=== PATIENT | female | born 1975 | race Caucasian/White ===

== ENCOUNTER 2018-11-22 03:04 | Emergency (ER) | payer SELFPAY ==
[~2018-11-22] VITALS: Ht 152.4 cm; Wt 91.1 kg
[2018-11-22 03:16] VITALS: BP 127/67; PULSE 100; RESP 18; Ht 152.4 cm; Wt 91.1 kg
== END 2018-11-22 03:25 | disposition left against medical advice (07) ==
LOC: FTE 03:04
DX: Z53.21 Procedure and treatment not carried out due to patient leaving prior to being seen by health care provider (principal)